=== PATIENT | male | born 1960 | race Caucasian/White ===

== ENCOUNTER 2018-05-13 00:14 | Emergency (ER) | payer OTHER ==
[~2018-05-13] VITALS: Ht 177.8 cm; Wt 91.6 kg
[2018-05-13 00:22] VITALS: Ht 177.8 cm; Wt 91.6 kg
[2018-05-13 01:53] LABS: microscopic required? NO
[2018-05-13 02:08] LABS: UA SPECIFIC GRAVITY >=1.030 (1.005-1.035); urine erythrocyte NEGATIVE (NEGATIVE)
[2018-05-13 02:50] VITALS: BP 123/78
== END 2018-05-13 02:50 | disposition home or self-care (01) ==
LOC: ED 00:14
PROVIDERS: Emergency Medicine
DX: I86.1 Scrotal varices (principal); I10 Essential (primary) hypertension
CPT/HCPCS: 87491; 87591; Q0092

== ENCOUNTER 2020-04-01 23:09 | Emergency (ER) | payer OTHER ==
[~2020-04-01] VITALS: Ht 175.3 cm; Wt 89.4 kg
[2020-04-01 23:17] VITALS: Ht 175.3 cm; Wt 89.4 kg
[2020-04-02 02:08] VITALS: BP 122/74
== END 2020-04-02 02:08 | disposition home or self-care (01) ==
LOC: ED 23:09
DX: S40.851A Superficial foreign body of right upper arm, initial encounter (principal); I10 Essential (primary) hypertension; W45.8XXA Other foreign body or object entering through skin, initial encounter; Y93.89 Activity, other specified; Y92.89 Other specified places as the place of occurrence of the external cause; Y99.8 Other external cause status
CPT/HCPCS: J2001